=== PATIENT | female | born 1985 | race Two or more races ===

== ENCOUNTER 2021-06-11 12:07 | Inpatient (IN) | payer OTHER ==
[~2021-06-11] VITALS: Ht 154.9 cm; Wt 3.2 kg
[2021-06-25] MEDS ORDERED: PRENATAL CAPLE1 EAC1 PO (12:22)
== END 2021-06-28 12:49 | disposition home or self-care (01) | DRG 788 ==
LOC: OB/GYN 06-24 11:00 → SURG-SUITE 06-25 11:34 → LDR 06-25 11:34 → SURG-SUITE 06-25 14:04 → OB/GYN 06-26 08:15 → SURG-SUITE 06-28 12:49
PROVIDERS: ADMIT Obstetrics & Gynecology; ATTEND Obstetrics & Gynecology
PROC: 4A1HXCZ Monitoring of Products of Conception, Cardiac Rate, External Approach (ICD-10-PCS; 2021-06-25)
PROC: 10D00Z1 Extraction of Products of Conception, Low, Open Approach (ICD-10-PCS; principal; 2021-06-25 14:45)
DX: O82 Encounter for cesarean delivery without indication (principal); Z3A.39 39 weeks gestation of pregnancy; Z37.0 Single live birth; Z20.822 Contact with and (suspected) exposure to COVID-19